=== PATIENT | female | born 1950 | race Caucasian/White ===

== ENCOUNTER → 2018-03-24 | Outpatient (CLI) | payer MEDICARE, BC ==
[~2018-03-24] MED LIST: AMBIEN 5MG TABLE5 MG PO; AMITIZA 8MCG8 MCG PO; COLACE 100100 MG/CAP PO; DILAUDID 2MG TAB2 MG PO; DILAUDID 4MG TAB4 MG PO; ENSURE PO; KLONOPIN 0.5MG0.5 MG PO; LORTAB 5/500 501 TAB PO; MAXALT10 MG; MIRALAX PA17 GM/Dose PO; MOTRIN 400400 MG/TAB PO; MS CONTIN 330 MG/TAB PO; MS CONTIN 660 MG/TAB PO; MULTIPLE VITAMI1 CAP PO; NEURONTIN100 MG/CAP PO; NORCO 325 MG-101 TAB PO; PEPCID 20MG TAB20 MG PO; REGLAN 10MG10 MG/TAB PO; SEROQUEL50 MG PO; XARELTO10 MG PO; ZOFRAN ODT4 MG PO
== END ==
LOC: COL.RAD 09:45
DX: H91.8X2 Other specified hearing loss, left ear (principal); R90.82 White matter disease, unspecified
CPT/HCPCS: A9585

== ENCOUNTER → 2019-03-06 | Outpatient (CLI) | payer MEDICARE, BC | LOC: MC.RAD 10:45 | DX: Z12.31 Encounter for screening mammogram for malignant neoplasm of breast (principal) ==

== ENCOUNTER → 2020-03-08 | Outpatient (CLI) | payer MEDICARE, BC | LOC: MC.RAD 11:09 | DX: Z12.31 Encounter for screening mammogram for malignant neoplasm of breast (principal) ==

== ENCOUNTER 2021-05-29 09:59 | Emergency (ER) | payer MEDICARE, BC ==
[~2021-05-29] VITALS: Ht 170.2 cm; Wt 61.4 kg
[2021-05-29 10:35] VITALS: TEMP 97.5
[2021-05-29 11:02] LABS: BASO % 0.4 % (0.0-2.0); EOS % 0.1 % (0.0-4.0); GRAN % 81.4 % (42.2-75.2); HEMATOCRIT 40.7 % (37.0-47.0); HEMOGLOBIN 14.7 g/dl (12.5-16.0); LYMPH # 0.8 K/mm3 (1.2-3.4); LYMPH % 11.2 % (20.0-51.0); MEAN CELL VOLUME 88 fl (80.0-100.0); MEAN CORPUSCULAR HEMOGLOBIN 32 pg (27-31); MEAN CORPUSCULAR HGB CONC 36 g/dl (33.0-37.0); MEAN PLATELET VOLUME 8.3 fl (7.4-10.4); MONO # 0.5 K/mm3 (0.1-0.6); MONO % 6.8 % (1.7-9.3); PLATELET COUNT 291 K/mm3 (130-400); RED BLOOD COUNT 4.63 M/mm3 (4.10-5.30); REDCELL DISTRIBUTION WIDTH-CV 11.8 % (11.5-14.5)
[2021-05-29 11:11] LABS: INR 1.1 (0.8-3.0); PROTHROMBIN TIME 12.2 SECONDS (9.7-12.8)
[2021-05-29 11:21] LABS: ALBUMIN 4.1 gm/dL (3.4-4.8); BILIRUBIN,TOTAL 0.9 mg/dL (0.2-1.2); CALCIUM 9.3 mg/dL (8.4-10.2); CREATININE, serum 0.74 mg/dL (0.57-1.11); POTASSIUM 3.5 mmol/L (3.5-4.5); TOTAL PROTEIN 7.3 gm/dL (6.2-8.1)
[2021-05-29 12:55] VITALS: BP 140/76; PULSE 75
== END 2021-05-29 12:57 | disposition home or self-care (01) ==
LOC: COL.ER 09:59
PROVIDERS: Physician Assistant
DX: R42 Dizziness and giddiness (principal); H81.09 Meniere's disease, unspecified ear; G43.909 Migraine, unspecified, not intractable, without status migrainosus; Z79.01 Long term (current) use of anticoagulants; Z79.899 Other long term (current) drug therapy
CPT/HCPCS: J0780; J2405; J7030

== ENCOUNTER 2023-05-28 14:43 | Outpatient (CLI) | payer MEDICARE, BC ==
[~2023-05-28] VITALS: Ht 170.2 cm; Wt 60.0 kg
[2023-05-28 15:04] VITALS: BP 151/86; PULSE 78; TEMP 98.1
[2023-05-28] MEDS ORDERED: MAXALT10 MG PO (15:08)
[2023-05-28] MEDS ORDERED: ANTIVERT 25MG25 MG PO (15:09)
[2023-05-28] MEDS ORDERED: PLAVIX 75MG TAB75 MG PO (15:09)
[2023-05-28] MEDS ORDERED: OMEGA-3 1000 MG1 CAP PO (15:10)
[2023-05-28] MEDS ORDERED: PROLIA60 MG/ML SQ (15:10)
[2023-05-28] MEDS ORDERED: COMPLETE MULTI1 TAB PO (15:10)
[2023-05-28] MEDS ORDERED: CALCIUM 600 MG1 EAC2 PO (15:10)
[2023-05-28] MEDS ORDERED: MASON NATURAL2000 IU PO (15:11)
== END 2023-05-28 15:35 | disposition home or self-care (01) ==
LOC: EUO 14:43
DX: M81.0 Age-related osteoporosis without current pathological fracture (principal)
CPT/HCPCS: J0897